=== PATIENT | male | born 1985 | race Caucasian/White ===

== ENCOUNTER 2017-04-04 22:58 | Emergency (ER) | payer OTHER ==
[~2017-04-04] VITALS: Ht 177.8 cm; Wt 63.5 kg
[~2017-04-04 22:58] MED LIST: MOTRIN 600 MG600 MG PO; ULTRAM(MONOGRAP50 MG PO
[2017-04-04 23:17] LABS: ABSOLUTE BASOPHIL COUNT 0.1 /CUMM (0.0-0.2); ABSOLUTE EOSINOPHIL COUNT 0.4 /CUMM (0.0-0.7); ABSOLUTE GRANULOCYTE CT 8.7 /CUMM (1.4-6.5); ABSOLUTE LYMPH COUNT 3.2 /CUMM (1.2-3.4); ABSOLUTE MONOCYTE COUNT 0.7 /CUMM (0.10-0.60); BASOPHIL % 0.5 % (0.0-2.0); EOSINOPHIL % 3.1 % (0-5); GRANULOCYTE % 66.3 % (42.2-75.2); MEAN CORPUSCULAR HGB 28.7 PG (27.0-31.0); MEAN CORPUSCULAR HGB CONC 33.3 G/DL (33.0-37.0); MEAN CORPUSCULAR VOLUME 86.2 FL (80.0-94.0); MEAN PLATELET VOLUME 8.3 FL (7.4-10.4); PLATELET COUNT 326 /CUMM (130-400); RBC DISTRIBUTION WIDTH 12.9 % (11.5-14.5); RED BLOOD CELL CT 4.99 /CUMM (4.70-6.10); WHITE BLOOD CELL COUNT 13.1 /CUMM (4.8-10.8)
--- NOTE | 2017-04-04 23:51 | ED PSYCHIATRIC COMPLAINT ---
History of Present Illness General Chief Complaint: ETOH/Drug Related Complaint Stated Complaint: BIBA FOR EVAL OVERDOSE Source: patient Exam Limitations: poor historian Vital Signs & Intake/Output Vital Signs & Intake/Output Vital Signs Date Time Temp Pulse Resp B/P B/P Pulse O2 O2 Flow FiO2 Mean Ox Delivery Rate 04/05 0937 97.8 85 20 107/69 95 Room Air 04/05 0639 96.9 68 18 100/60 96 Room Air 04/05 0447 97.0 71 18 110/62 96 Room Air 04/05 0306 98.1 70 18 116/67 98 Room Air 04/05 0029 97.8 79 18 108/62 94 Room Air 04/04 2303 100 18 136/82 94 Room Air ED Intake and Output 04/05 0000 04/04 1200 Intake Total Output Total Balance Patient 140 lb Weight Weight Reported by Patient Measurement Method Allergies Coded Allergies: MDX - Amoxicillin (AMOXICILLIN) (Intermediate, VOMITING 05/04/15) Reconcile Medications Ibuprofen (Motrin 600 MG Tab) 600 MG TAB 1 TAB PO Q6P PRN PAIN Naloxone HCl (Narcan) 4 MG/ACTUATION SPRAY 1 SPRAY IN ONCE PRN OPIATE OVERDOSE Tramadol HCl (Ultram) 50 MG TAB 1-2 TAB PO Q6 PRN severe pain Triage Note: 32M BIBA FOR SELF-ADMITTED OD. PT USED METHADONE AND SNORTED ONE BAG OF HEROIN AND WAS FOUND UNRESPONSIVE BY FRIENDS APPROX 1 HOUR BONDING SUPERVISOR. DUE TO THEIR OBSERVATION OF PATIENT NOT BREATHING, THEY INITIATED CPR COMPRESSIONS AND ADMINISTERED NARCAN 4MG INTRANASAL AND 2MG IM WITH GOOD EFFECT. PT ARRIVES AAOX3, SPEACH CLEAR AND ORGANIZED, CALM AND COOPERATIVE ON ARRIVAL. REPORTS SLIGHT CHEST SORENESS. RESPIRATIONS EVEN, UNLABORED RR 16 AND O2 SAT 95% RA. DENIES SI/HI AND CONTRACTS FOR SAFETY. DENIES ETOH. SECURITY TO BEDSIDE ON ARRIVAL FOR WANDING Triage Nurses Notes Reviewed? yes HPI: Patient presents for evaluation of an unresponsive episode. He states he made a "stupid choice" and sniffed heroine resulting in an overdose. One of his friends called 911 and he was resuscitated with Narcan. He has no complaints currently. Patient states he feels well currently and denies any suicide intent. He states in fact he has done this before in the past. He denies any associated alcohol use or any other drug use. (Mccrary Jcarlos GUPTA) Past History Travel History Traveled to [place] past 21 day No Medical History Neurological: NONE EENT: NONE Cardiovascular: NONE Respiratory: asthma Gastrointestinal: NONE Hepatic: NONE Renal: NONE Musculoskeletal: NONE Psychiatric: NONE Endocrine: NONE Blood Disorders: NONE Cancer(s): NONE Tetanus Vaccine: 05/04/15 Surgical History Surgical History: non-contributory Psychosocial History What is your primary language Greek Tobacco Use: Current Daily Use Daily Tobacco Use Amount/Type: Smokeless tobacco daily ETOH Use: occasional use Illicit Drug Use: heroin (Jcarlos Mccrary MD) Medical History Any Pertinent Medical History? see below for history Family History Hx Contributory? No (Jcarlos Ellsworth DO) Review of Systems Review of Systems Constitutional: Denies: fever. EENTM: Reports: no symptoms. Respiratory: Reports: no symptoms. Cardiovascular: Reports: no symptoms. GI: Reports: no symptoms. Genitourinary: Reports: no symptoms. Musculoskeletal: Reports: no symptoms. Skin: Reports: no symptoms. Neurological/Psychological: Reports: no symptoms. Hematologic/Endocrine: Reports: no symptoms. Immunologic/Allergic: Reports: no symptoms. (Jcarlos Ellsworth DO) Physical Exam Physical Exam Comments: Gen.: Well-nourished, well-developed, no acute respiratory distress. Head: Normocephalic, atraumatic. Eyes: Normal inspection bilaterally Ears: Normal inspection bilaterally Nose: Normal inspection Throat/mouth : Moist mucosa Neck: Supple, full range of motion, no goiter Heart: Regular rate and rhythm, no murmurs rubs or gallops Lungs: Clear to auscultation bilaterally with normal air entry Chest: Nontender Back: Normal range of motion Abdomen: Soft, nontender, nondistended, normal bowel sounds Extremities: Normal range of motion grossly, equal radial pulses, no cyanosis clubbing or edema Neurologic: Cranial nerves grossly intact, speech is clear Skin: warm and dry Psychiatric: Calm, cooperative, no apparent delusions or hallucinations (Jcarlos Mccrary MD) Physical Exam General Appearance: well developed/nourished, alert, awake Head: atraumatic, normal appearance Eyes: Bilateral: normal appearance, PERRL, EOMI. Ears, Nose, Throat: normal pharynx, normal ENT inspection Neck: normal inspection, supple Respiratory: normal breath sounds, chest non-tender, no respiratory distress Cardiovascular: regular rate/rhythm Gastrointestinal: soft, non-tender Extremities: normal range of motion Neurological/Psychiatric: no motor/sensory deficits, awake, agitated, alert Appearance/Memory/Insight: appropriate appearance Behavoir/Eye Contact/Speech: cooperative Thoughts/Hallucinations: no apparent hallucination Skin: intact SAD PERSONS SAD PERSONS Response Value Male Sex? yes 1 Excessive Ethanol/Drug Use? yes 1 Single//? yes 1 Social Support? has no support 1 Total 4 SAD PERSONS Done? yes (Seng LOERA,Jcarlos Orozco) Progress Plan of Care: Orders Procedure Date/time Status Heart Healthy Diet 04/05 Active Patient Safety Monitor 04/04 2325 Active ED CRISIS PSYCH CONSULT 04/04 2325 Active URINE DRUGS OF ABUSE 04/04 2307 Complete TROPONIN LEVEL 04/04 2307 Complete ETHANOL 04/04 2307 Complete COMPREHENSIVE METABOLIC PANEL 04/04 2307 Complete CBC WITHOUT DIFFERENTIAL 04/04 2307 Complete EKG 04/04 2259 Active Laboratory Tests 04/05/17 0224: Urine Opiates Screen > 4000.00 H, Methadone Screen > 735 H, Barbiturate Screen < 60, Ur Phencyclidine Scrn < 6.00, Amphetamines Screen 105, U Benzodiazepines Scrn < 85, Urine Cocaine Screen > 1000 H, Urine Cannabis Screen 77.70 H 04/04/172304: Anion Gap 16, Estimated GFR > 60, BUN/Creatinine Ratio 18.0, Glucose 187 H, Calcium 9.4, Total Bilirubin 0.9, AST 25, ALT 30, Alkaline Phosphatase 60, Troponin I < 0.01, Total Protein 7.7, Albumin 4.4, Globulin 3.3, Albumin/ Globulin Ratio 1.3, CBC w Diff NO MAN DIFF REQ, RBC 4.99, MCV 86.2, MCH 28.7, RDW 12.9, MPV 8.3, Gran % 66.3, Lymphocytes % 24.5, Monocytes % 5.6, Eosinophils % 3.1, Basophils % 0.5, Absolute Granulocytes 8.7 H, Absolute Lymphocytes 3.2, Absolute Monocytes 0.7 H, Absolute Eosinophils 0.4, Absolute Basophils 0.1, PUBS MCHC 33.3, Serum Alcohol < 10.0 Comments: 04/05/2017 6:51:41 AM patient resting comfortably. Patient signed out to Dr. Seng at shift waste/materials exchange specialist. (Jcarlos Mccrary MD) Differential Diagnosis: drug overdose (Jcarlos Ellsworth DO) Departure Departure Condition: Stable Referrals: Unknown (PCP/Family) Departure Forms: Customer Survey General Discharge Information Prescriptions: Current Visit Scripts Naloxone HCl (Narcan) 1 SPRAY IN ONCE PRN OPIATE OVERDOSE #1 SPRAY (Demetra GPUTA,cJarlos Ortiz) Departure Disposition: STILL A PATIENT Clinical Impression Primary Impression: Heroin overdose Comments 04/05/17 10:30 am Patient was seen and evaluated and cleared by crisis. He was discharged with outpatient follow-up. (Jcarlos Ellsworth DO)
--- NOTE | 2017-04-05 09:19 | ED PSYCH CRISIS CONSULTATION ---
Crisis Consult Basic Assessment Date of Consult: 04/05/17 Responsible Person/Accompanied By: PETER Insurance Authorization: Insurance #1: Insurance name: DULCE HARDY [place]. Phone number: Policy number: [id number] Group number: [id number] Authorization number: ED Provider: Patient's ED Provider: Jcarlos Mccrary MD Primary Care Physician: Patient's PCP: Unknown PCP's Phone Number: Current Psychiatrist: [facility] Chief Complaint: ETOH/Drug Related Complaint Patient's Quote: "Drug overdose." Present Illness: The patient is a 32 year old, single male presenting to the ED, via ambulance after an overdose on Heroin. The patient was alert, oriented, calm and cooperative. The patient reports that he has a long history of substance abuse and had a relapse, about 1 week ago. He states prior to one week ago, he was clean from Cocaine and Heroin for about 1 year. He has been on16mg (NOT verfied) , of Methdaone at [facility] and has been using Cannabis to help with sleep and appetite. He reports that "he did a stupid thing," by using this week, noting his trigger was an increase in strssors. He states that his stressors include; his grandmother passing last week, the holidays and a break up from a 13 year relationship last fall. He states that he was doing good and regrets relapstin. He denies that his overdose was intentional and states that he was getting high. He denies any history of mental health issues or treatment. He dnies any current or history of SI / HI /AH / VH. He denies feeling depressed, hopeless, helpless or worthless. He states that besides going to the [facility], he has attended treatment at [facility], for Suboxone. 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 He states that his son resides with his mother (ex- girlfriend) and her mother and that they are amicable re: visitation. He gena like to be discharged home to follow up with current treatment at the [facility]. Allergies - Coded Allergies: MDX - Amoxicillin (AMOXICILLIN) (Intermediate, VOMITING 05/04/15) Current Medications - Scheduled PRN Medications Ibuprofen (Motrin 600 MG Tab) 600 MG TAB 1 TAB PO Q6P PRN PAIN #60 TAB Prescribed by Víctor Macario MD on 04/18/15 Tramadol HCl (Ultram) 50 MG TAB 1-2 TAB PO Q6 PRN severe pain #30 TAB Prescribed by Víctor Macario MD on 04/18/15 Past History Past Medical History Neurological: NONE EENT: NONE Cardiovascular: NONE Respiratory: asthma Gastrointestinal: NONE Hepatic: NONE Renal: NONE Musculoskeletal: NONE Psychiatric: NONE Endocrine: NONE Blood Disorders: NONE Cancer(s): NONE Past Surgical History Surgical History: non-contributory Departure Disposition Referrals Unknown (PCP/Family)
[2017-04-05 09:37] VITALS: BP 107/69
--- NOTE | 2017-04-05 09:41 | ED PSYCH CRISIS CONSULTATION ---
Crisis Consult Basic Assessment Date of Consult: 04/05/17 Responsible Person/Accompanied By: PETER Insurance Authorization: Insurance #1: Insurance name: DULCE HARDY [place]. Phone number: Policy number: [id number] Group number: [id number] Authorization number: ED Provider: Patient's ED Provider: Jcalros Mccrary MD Primary Care Physician: Patient's PCP: Unknown PCP's Phone Number: Current Psychiatrist: [facility] Chief Complaint: ETOH/Drug Related Complaint Patient's Quote: "Drug overdose." Present Illness: The patient is a 32 year old, single male presenting to the ED, via ambulance after an overdose on Heroin. The patient was alert, oriented, calm and cooperative. The patient reports that he has a long history of substance abuse and had a relapse, about 1 week ago. He states prior to one week ago, he was clean from Cocaine and Heroin for about 1 year. He has been on 16mg (NOT verified), of Methadone at [facility] and has been using Cannabis to help with sleep and appetite. He reports that "he did a stupid thing," by using this week, noting his trigger was an increase in stressors. He states that his stressors include; his grandmother passing last week, the holidays and a break up, from a 13 year relationship last fall. He states that he was doing good and regrets relapsing. He states that his overdose was not intentional and states that he was getting high. He reports that he has used Heoin IV and intranasal, however he used intranasal last night, as he was trying to be safe. He denies any history of mental health issues or treatment. He denies any current or history of SI / HI /AH / VH. He denies feeling depressed, hopeless, helpless or worthless. He states that besides going to the [facility], he has attended treatment at [facility], for Suboxone. 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 He states that his son resides with his mother (ex- girlfriend) and her mother and that they are amicable re: visitation. He denies any current DCF involvement. He would like to be discharged home to follow up with current treatment at the [facility]. NELIDA spoke with his friend, Fly Kennedy ( ) for collateral information. Fly reports that he has known the patient for the last 10 years and that he has never known him to have any mental health issues, stating "hes a happy kid." Fly reports that the overdose was not intentional and that the patient relapsed and "just did to much." Fly reports that he has never known the patient to be suicidal and that the patient has never made any suicide attempts. He has no concerns re: the patient being discharged home. Of note, per Dr. Mccrary and cabin cleaning supervisor Francesca the patient has been cooperative and did not make any suicidal or homicidal statements, since presenting to the hospital. Dr. Mccrary states that the Crisis consult was only requested because he overdosed and required Narcan. Patient's Address: [address] [place] [address] Other Phone Number: Who Do You Live With? Patient/Self Family/Informants Interviewed: Friend- Fly Kennedy- [phone] Allergies - Coded Allergies: MDX - Amoxicillin (AMOXICILLIN) (Intermediate, VOMITING 05/04/15) Current Medications - Scheduled PRN Medications Ibuprofen (Motrin 600 MG Tab) 600 MG TAB 1 TAB PO Q6P PRN PAIN #60 TAB Prescribed by Víctor Macario MD on 04/18/15 Naloxone HCl (Narcan) 4 MG/ACTUATION SPRAY 1 SPRAY IN ONCE PRN OPIATE OVERDOSE #1 SPRAY Prescribed by Jcarlos Ellsworth DO on 04/05/17 Tramadol HCl (Ultram) 50 MG TAB 1-2 TAB PO Q6 PRN severe pain #30 TAB Prescribed by Víctor Macario MD on 04/18/15 Laboratory Results: Laboratory Tests 04/05/17 0224: Urine Opiates Screen > 4000.00 H, Methadone Screen > 735 H, Barbiturate Screen < 60, Ur Phencyclidine Scrn < 6.00, Amphetamines Screen 105, U Benzodiazepines Scrn < 85, Urine Cocaine Screen > 1000 H, Urine Cannabis Screen 77.70 H 04/04/17 2305: Anion Gap 16, Estimated GFR > 60, BUN/Creatinine Ratio 18.0, Glucose 187 H, Calcium 9.4, Total Bilirubin 0.9, AST 25, ALT 30, Alkaline Phosphatase 60, Troponin I < 0.01, Total Protein 7.7, Albumin 4.4, Globulin 3.3, Albumin/ Globulin Ratio 1.3, CBC w Diff NO MAN DIFF REQ, RBC 4.99, MCV 86.2, MCH 28.7, RDW 12.9, MPV 8.3, Gran % 66.3, Lymphocytes % 24.5, Monocytes % 5.6, Eosinophils % 3.1, Basophils % 0.5, Absolute Granulocytes 8.7 H, Absolute Lymphocytes 3.2, Absolute Monocytes 0.7 H, Absolute Eosinophils 0.4, Absolute Basophils 0.1, PUBS MCHC 33.3, Serum Alcohol < 10.0 Past History Past Medical History Neurological: NONE EENT: NONE Cardiovascular: NONE Respiratory: asthma Gastrointestinal: NONE Hepatic: NONE Renal: NONE Musculoskeletal: NONE Psychiatric: NONE Endocrine: NONE Blood Disorders: NONE Cancer(s): NONE Past Surgical History Surgical History: non-contributory Psychosocial History Strengths/Capabilities: The patient resides in his own apartment and works to support himself. He has good insight into his substance abuse issues and his need for treatment. Physical Limitations (Interventions): None noted Psychiatric Treatment History Psych Treatment Psychiatric Treatment No (Patient denies) Inpatient Treatment No Outpatient Treatment No Location of Treatment N/A Reason for Treatment N/A Dates of Treatment N/A Response to Treatment N/A Diagnosis by History: N/A Substance Use/Abuse History Drug Use/Abuse 1 Substances Used/Abused Yes Substance Used/Abused Marijuana First Use 15 years old Last Used Yesterday: 04/04/2017 How much used/taken Unclear How often Daily for sleep and appetite For how long Unclear Route of use Inhalation Drug Use/Abuse 2 Substances Used/Abused Yes Substance Used/Abused Cocaine First Use 21 years old Last Used yesterday; 04/04/2017 How much used/taken Unclear How often 1x in the last year For how long 1x in the last year. Route of use Intranasal Drug Use/Abuse 3 Substances Used/Abused Yes Substance Used/Abused Heroin First Use 18 years old Last Used yesterday; 04/04/2017 How much used/taken unclear How often relapsed 1 week ago For how long relaspsed 1 week ago, prior to that hewas clean for 1 year Route of use intranasal Substance Abuse Treatment Substance Abuse Treatment Past Substance Abuse [place] Yes Inpatient Treatment No Outpatient Treatment Yes Location of Treatment [place] Reason for Treatment Heroin abuse Dates of Treatment He is current with [facility] and has been for about 8 years. Response to Treatment He states that he has been doing well and is only on 16mg at this point. Comments: N/A Current Mental Status Mental Status Orientation: Person, Place, Situation Affect: Appropriate, Euphoric Speech: WNL Neuro-vegetative: Appetite Decreased, Sleep Disturbance Appearance Appearance- Dress/Hygiene: The patient was lying in bed, in hospital attire and appeared disheveled. Behaviors Thought Process: WNL Thought Content: WNL Memory: WNL Insight: WNL SI/HI Risk Assessment Past Suicidal Ideation/Attempts No (Patient denies) Current Suicidal Ideation/Att No (Pt. denies) Past Homicidal Ideation/Att: No (Pt. denies) Current Homicidal Ideation/Attempts No (Pt. denies) Degree of Intent: None Danger To: N/A Gravely Disabled: N/A Risk Factors: substance abuse, male, limited support Lethality Ratin PTSD Checklist PTSD Done? 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 Current GAF: 61 Comments: N/A Departure Disposition Psych Medical Clearance Date: 04/05/17 Medically Cleared at: 0715 Time Started: 45 Time Ended: 844 Psychiatrist Consulted: Pablito Marlow MD Date Disposition Established: 04/05/17 Time Disposition Established: 1015 Plan for Disposition - Modality: Discharge home with Narcan kit Facility: Return to treatment at [facility] Contact: [facility] Rationale for Disposition: The patient presented to the ED, via ambulance after an overdose, requiring Narcan. He presents calm, cooperative and was well engaged in the evaluation. The patient states that it was not an intentional overdose. He denies any current or history of SI / HI / AH / VH. He is in treatment with [facility] and per Dr. Kashmir zurita (Myriam-VINNIE), were made aware that he had an overdose and was in ED. Per Dr. Ellsworth the patient was not given his Mehtdaone dose while in the ED and that was relayed to [facility] as well. Dr. Marlow does not find the patient to be a risk to self or others and will discharge him to return to treatment at [facility]. Additional Instructions: N/A Referrals Unknown (PCP/Family)
[2017-04-05] MEDS ORDERED: NARCAN4 MG IN (10:37)
== END 2017-04-05 10:47 ==
LOC: ERH 22:58
PROVIDERS: Emergency Medicine
DX: T40.601A Poisoning by unspecified narcotics, accidental (unintentional), initial encounter (principal)
CPT/HCPCS: 80307; 93005; 93010; G0463; G0480